=== PATIENT | male | born 1965 | race Two or more races ===

== ENCOUNTER 2019-04-25 07:42 | Emergency (ER) | payer OTHER, MEDICAID ==
[~2019-04-25] VITALS: Ht 182.9 cm; Wt 59.0 kg
[2019-04-25] MEDS ORDERED: SODIUM CHLORIDE 0.9% 1,000 ML IV ONE ×2 (07:53→12:45)
[2019-04-25 10:48] LABS: Hematocrit 31.5 % (41.0-53.0); Hemoglobin 10.3 g/dL (13.5-17.5); Mean Corpuscular Hemoglobin 30.4 pg (28.0-32.0); Mean Corpuscular Hgb Conc. 32.6 g/dL (32.0-36.0); Mean Corpuscular Volume 93.1 fL (80.0-100.0); Platelet Count (auto) 107 10^3/uL (140-450); Red Blood Cells 3.38 10^6/uL (4.5-5.90); White Blood Cell 16.6 10^3/uL (4.4-10.8)
[2019-04-25 10:56] LABS: Band Neutrophils % (manual) 0; Basophils % (manual) 0 (0.0-2.0); Blast Cells 0; Eosinophils % (manual) 0 (0-7); Metamyelocytes % 0; Myelocytes % 0; Promyelocytes % 0; Reactive Lymphocytes 0
[2019-04-25 11:03] LABS: INR 1.18 (0.9-1.15); Partial Thromboplastin Time 24.5 sec (23.64-32.05)
[2019-04-25 11:09] LABS: Albumin 2.6 g/dL (3.4-5.0); Anion Gap 11 (5-15); Blood Urea Nitrogen 24 mg/dL (7-18); Calcium 8.4 mg/dL (8.5-10.1); Carbon Dioxide 16 mmol/L (21-32); Chloride 103 mmol/L (98-107); Glucose 103 mg/dL (74-106); Potassium 5.2 mmol/L (3.5-5.1); Sodium 130 mmol/L (136-145)
[2019-04-25 11:13] LABS: Lymphocytes % (manual) 2 (10.0-50.0); Monocytes % (manual) 2 (0-12)
[2019-04-25 11:16] LABS: Alanine Aminotransferase 21 U/L (16-61); Alkaline Phosphatase 118 U/L (45-117); Aspartate Aminotransferase 22 U/L (15-37); GFR African American 50 mL/min; GFR Non-African American 41 mL/min; Total Protein 6.5 g/dL (6.4-8.2)
[2019-04-25] MEDS ORDERED: PIPERACILLIN-TAZOB 3.375GM 100 ML IV ONE (12:00)
[2019-04-25 12:01] LABS: Lactic Acid w/Reflex 3.6 mmol/L (0.4-2.0)
[2019-04-25 19:51] VITALS: BP 104/62
== END 2019-04-25 13:25 | disposition short-term general hospital (02) ==
LOC: ER 07:42 → EDBD 07:42 → ER 13:25
DX: A41.9 Sepsis, unspecified organism (principal); K52.9 Noninfective gastroenteritis and colitis, unspecified; J18.9 Pneumonia, unspecified organism
CPT/HCPCS: 36415; 71045; 74176; 80053; 83605; 84484; 85007; 85027; 85610; 85730; 87040; 93005; 96361; 96365; 99291; J2543